=== PATIENT | male | born 1950 | race Caucasian/White ===

== ENCOUNTER 2019-07-11 09:37 | Emergency (ER) | payer BC, MEDICARE ==
[~2019-07-11] VITALS: Ht 185.4 cm; Wt 119.8 kg
[2019-07-11] MEDS ORDERED: EPINEPHrine 1MG/10ML SYRINGE 1.5IN ONE (09:38)
[2019-07-11] MEDS ORDERED: EPINEPHrine 1MG/10ML SYRINGE 1.5IN IV STA ×2 (09:59)
== END 2019-07-11 12:44 | disposition expired ==
LOC: M ED 09:37
DX: I46.9 Cardiac arrest, cause unspecified (principal); E66.9 Obesity, unspecified